=== PATIENT | male | born 1995 | race African-American/Black ===

== ENCOUNTER 2020-11-16 17:35 | Emergency (ER) | payer OTHER ==
[~2020-11-16] VITALS: Ht 175.3 cm; Wt 92.3 kg
[2020-11-16] MEDS ORDERED: ACETAMINOPHEN 500 MG TAB PO ONE (18:00)
--- NOTE | 2020-11-16 18:08 | REP ---
INDICATION: TRAUMA. COMPARISON: None. TECHNIQUE: Four views of the right thumb are provided. FINDINGS: Four views of the right thumb demonstrate normal bones, joints, and soft tissues. No fracture or subluxation is seen. No opaque foreign body noted. IMPRESSION: Negative right thumb series. <Electronically signed by Osmany Vargas > 11/16/20 [id number]
[2020-11-16 19:01] VITALS: BP 159/102
== END 2020-11-16 19:04 | disposition home or self-care (01) ==
LOC: M ED 17:35
DX: S60.111A Contusion of right thumb with damage to nail, initial encounter (principal); W22.8XXA Striking against or struck by other objects, initial encounter; Y92.89 Other specified places as the place of occurrence of the external cause; Y93.9 Activity, unspecified; Y99.1 Military activity

== ENCOUNTER 2020-12-01 00:48 | Emergency (ER) | payer OTHER ==
[~2020-12-01] VITALS: Ht 185.4 cm; Wt 90.8 kg
--- NOTE | 2020-12-01 02:31 | REPVR ---
PROCEDURE INFORMATION: Exam: XR Right Forearm Exam date and time: 12/01/20 (1:06am) Age: 25 years old Clinical indication: Possible foreign body TECHNIQUE: Imaging protocol: XR Right forearm Views: 2 views COMPARISON: No relevant prior studies available FINDINGS: Frontal and lateral views of the right forearm are provided. No acute fracture nor dislocation. A bandage (presumably) is in place over the anterolateral portion of the mid right forearm. A small radiodensity (5 x 7 x 9 mm size) projects in the soft tissues of the anterior right forearm in this area, approx. 14 cm distal to the right elbow joint. The small density is approx. 2.1 cm deep to the skin surface, as seen on the lateral view. IMPRESSION: No acute fracture nor dislocation. Small radiodensity in the soft tissues of the mid right forearm, anteriorly -- compatible with a small radiodense foreign body in the soft tissues. See additional comments above. Electronically signed by: Connie Shultz On 12/01/2020 02:31:24 AM
[2020-12-01] MEDS ORDERED: BUPIVACAINE HCL 0.5% 30 ML VIAL SC ONE (03:40)
[2020-12-01] MEDS ORDERED: LIDOCAINE W/EPINEPHRINE 1% 20ML VIAL SC ONE (03:40)
[2020-12-01] MEDS ORDERED: CEPHALEXIN 500 MG CAP PO ONE (05:10)
[2020-12-01] MEDS ORDERED: BOOSTRIX/ADACEL VACCINE (DIPHTH/PERTUSS/ACELL/TETANUS) 0.5ML SYR IM ONE (05:10)
[2020-12-01 05:15] VITALS: BP 125/75
[2020-12-01] MEDS ORDERED: CEPH500C PO (05:40)
--- NOTE | 2020-12-01 06:44 | CR ---
CONSULTATION DATE: 12/01/2020 CHIEF COMPLAINT: Right forearm laceration, foreign body. HISTORY OF PRESENT ILLNESS: A 25-year-old man in the who fell five hours ago into a mirror. He sustained a laceration to the proximal volar aspect of the forearm. Radiographs were negative aside of a small radiopaque foreign body. I was consulted by Dr. Conner to see the patient, the ED physician senior formulation scientist. No prior pain problems with the upper extremity. PAST MEDICAL HISTORY: None. MEDICATIONS: None. ALLERGIES: No known drug allergies. PAST SURGICAL HISTORY: None. 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 He is a nonsmoker and does not use illicit drugs or alcohol. PHYSICAL EXAMINATION: A 25-year-old man who appears stable. Communicates appropriately. Does not appear intoxicated. There is a small 2 cm, slightly oblique, complex laceration, proximal volar forearm, more towards the ulnar side. No active bleeding. There is also another superficial abrasion in that same area about the same length. The forearm compartments are soft. Strong radial pulse. Hand warm and well perfused. Normal sensation in motor function in the median, radial and ulnar nerve distributions as well as AIN and PIN. He is able to flex and extend the PIP, DIP and MCP joints of all the fingers including the thumb and flexed and extended the wrist appropriately. Normal sensation of the tips of all the digits. Radiographs reviewed. This shows a small radiopaque foreign body. ASSESSMENT AND PLAN: This 25-year-old man had a small laceration of the proximal forearm without obvious damage to the tendon or neurovascular structures. I discussed pros and cons, risks and benefits of attempted removal as well as irrigation, debridement and laceration repair. I performed this. I was unable to remove the foreign body. As such, it was elected after discussion of the pros and cons to leave this in place. However, I did thoroughly irrigate the wound, closed the wound and asked Dr. Conner to ensure the tetanus is up to date as well as outpatient antibiotics for the next five days with appropriate wound coverage. I recommend the patient do daily dressing changes, keep this clean and dry, elevate the limb and follow [place] the [place] at two weeks time to discontinue the sutures. PROCEDURE NOTE: I discussed the pros and cons, risks and benefits of going ahead with right volar forearm irrigation, debridement and closure. The patient signed the consent form. Possible risks include but are not limited to infection, pain, stiffness, weakness, damage to surrounding structures, neurovascular injury, delayed healing or other wound healing problems. He wished to go ahead. He signed the consent form. I marked the right upper extremity. I proceeded with the procedure. I used 1.5 liters of normal saline to thoroughly irrigate the wound. I used Betadine to clean the wound. I felt inside the wound. There was no obvious palpable foreign body or easily removable foreign body. As such, it was elected to go ahead with wound closure. I used 3-0 Vicryl sutures in simple interrupted fashion to close the deep layers. I used 3-0 Ethilon in a horizontal mattress fashion, three superficial and three deep sutures. I cut the tails short, thoroughly cleaned the wound, dressed the wound with 4x4 sterile gauze and then a loosely wrapped Marika type dressing. The patient had already received a local anesthetic prior to this procedure. The patient understands instructions, had no further questions.
== END 2020-12-01 05:48 | disposition home or self-care (01) ==
LOC: M ED 00:48
DX: S51.821A Laceration with foreign body of right forearm, initial encounter (principal); W26.8XXA Contact with other sharp object(s), not elsewhere classified, initial encounter; Y92.098 Other place in other non-institutional residence as the place of occurrence of the external cause; Y93.72 Activity, wrestling; Y99.8 Other external cause status